=== PATIENT | male | born 1980 | race Caucasian/White ===

== ENCOUNTER 2022-11-16 12:51 | Observation (INO) | payer BC, SELFPAY ==
[2022-11-16] VITALS (11 sets, daily range): BP systolic 105–125; BP diastolic 62–80; PULSE 87–142; RESP 16–24; TEMP 36.6–36.9; O2SAT 96–99; BMI 22.0; BMI 22.5
[2022-11-16] MEDS: dilTIAZem 5 MG/ML inj 20 MG IVP (13:20)
[2022-11-16 13:23] LABS: Basophils Absolute Auto 0.05 K/uL (0.00-0.30); Basophils Percent Auto 0.5 % (0.0-3.0); Eosinophils Absolute Auto 0.32 K/uL (0.00-0.50); Eosinophils Percent Auto 3.2 % (0.0-7.0); Hematocrit 41.2 % (37.0-53.0); Hemoglobin* 12.6 gm/dL (13.5-17.5); Immature Granulocytes Abs Auto 0.07 K/uL (0.00-0.30); Immature Granulocytes Pct Auto 0.7 %; Lymphocytes Percent Auto 14.9 % (20-44); Mean Corpuscular HGB Conc 31 gm/dL (32-36); Mean Corpuscular Hemoglobin 31 pg (26-34); Mean Corpuscular Volume 103 fL (80-100); Monocytes Percent Auto 8.9 % (0.0-11.0); Neutrophils Absolute Auto 7.09 K/uL (1.7-7.0); Neutrophils Percent Auto 71.8 % (42.0-72.0); Platelet Count* 338 K/uL (140-440); RDW Coefficient of Variation % 14.7 % (11.5-15.5); Red Blood Count 4.01 m/uL (4.30-5.90); White Blood Count* 9.88 K/uL (4.50-11.00)
[2022-11-16 13:29] LABS: Slide Review Reflex No
--- NOTE | 2022-11-16 13:40 | PC.NURSE ---
pt states feeling much better with rate down to 103, recheck ekg, sinus tach, physician informed. denies chest pain or pressure.
[2022-11-16 13:42] LABS: Chloride* 107 mmol/L (96-114); Potassium* 3.7 mmol/L (3.6-5.1); Sodium* 142 mmol/L (135-149)
[2022-11-16 13:45] LABS: Anion Gap 10 mEq/L (7-15); Blood Urea Nitrogen* 7 mg/dL (5-24); Calcium* 9.1 mg/dL (8.4-10.6); Carbon Dioxide* 25 mmol/L (20-32); Creatinine* 0.6 mg/dL (0.5-1.5); Estimated Glomerular Filt Rate 125 ml/min; Glucose* 123 mg/dL (60-115); Magnesium* 1.7 mg/dL (1.5-2.6)
[2022-11-16 14:07] LABS: Troponin I* < 0.01 ng/mL (0.01-0.04)
[2022-11-16] MEDS: dilTIAZem 30 MG TABLET PO ×2 (15:49→21:41)
[2022-11-16 15:55] LABS: Albumin* 3.7 g/dL (3.3-5.0)
[2022-11-16 15:58] LABS: Alanine Aminotransferase* 28 U/L (4-50); Alkaline Phosphatase* 112 U/L (40-150); Aspartate Amino Transferase* 33 U/L (12-35); Bilirubin Direct* 0.2 mg/dL (0.0-0.5); Bilirubin Total* 0.4 mg/dL (0.1-1.5); Total Protein* 7.1 g/dL (6.0-8.3)
[2022-11-16 16:01] LABS: Ethanol* < 0.01 % (0.01-0.03)
--- NOTE | 2022-11-16 16:44 | ED_ITS ---
HPI - General Adult General Date Seen: 11/16/22 Chief complaint: Shortness of Breath/Dyspnea Stated complaint: Chest pain, short of breath Time Seen by Provider: 11/16/22 13:09 Source: patient Mode of arrival: ambulatory Limitations: no limitations History of Present Illness HPI narrative: Patient is a 42-year-old male presents emergency department for chest discomfort. He states roughly am in [place] discomfort in his chest. States it is not painful or pressure just ?feels funny.? Denies this ever happened to him before. He has no history of heart disease. Denies lightheadedness, dizziness, headache, weakness, numbness, vision changes. States there is some associated shortness of breath. States he has been working outside in the heat a lot recently and has been having issues with heat exhaustion. He is in town working a job but is from the [facility]. Is not currently on any medications. Related Data Home Medications Medication Instructions Recorded Confirmed No Known Home Medications 11/16/22 11/16/22 Allergies Allergy/AdvReac Type Severity Reaction Status Date / Time shellfish derived Allergy Verified 11/16/22 13:15 Review of Systems Status of ROS: Reports: 10 or more systems reviewed and unremarkable except as noted in History and below PFSH PFS Social History What is your current living situation?: I presently have a place to live Problems where you live: no known problems Problems where you live details: none In the past 12 months, utilities in danger of being shut off: no In the past 12 mos, have been you worried that your food would run out before you had money to buy more?: never true In the past 12 mos, the food you bought just didn't last and you didn't have money to buy more?: never true Highest level of school completed/degree received: Associate degree: occupation al, technical, vocational program Smoking Status: Current every day smoker What tobacco products do you use: cigarettes Smoking packs per day: 1 Smoking cigarettes per day: 20.0 Years smoked: 2 Smoking pack-years: 2.00 Do you use any of these nicotine containing products: None Second hand tobacco smoke exposure: No How often do you have a drink containing alcohol: never How often do you have six or more drinks on one occasion: Never AUDIT-C Alcohol total score: 0 Non-prescribed substance use: other Non-prescribed substance use details: Kratom tea daily Caffeine: Yes (5 cups coffee daily) How often does anyone, including family, friends and others, physically hurt you : never How often does anyone, including family, friends and others, insult or talk down to you: never How often does anyone, including family, friends and others, threaten you with harm: never How often does anyone, including family, friends and others, scream or curse at you: never service: No Exam Narrative: Exam Narrative: Const: Well-nourished, Well-developed, in mild distress Eyes: PERRL, no conjunctival injection, and symmetrical lids ENMT: Atraumatic external nose and ears. Moist mucous membranes. Neck: Symmetric, trachea midline, No thyromegaly. CVS: Tachycardia, No murmurs or gallops. Peripheral pulses 2+ and equal in all extremities RESP: Unlabored respiratory effort. Clear to auscultation bilaterally. GI: Nontender/Nondistended, No rebound or guarding. MSK:Extremities w/o deformity, Normal Active ROM Skin: Warm, Dry. No rashes or lesions. Neuro: Normal Muscle tone, No focal neurological deficits. Psych: Awake, Alert, & Oriented x3. Appropriate mood and affect. Const: Vital Signs, click to edit/add: Vital Signs - 24 hr 11/16/22 12:59 11/16/22 13:05 11/16/22 13:27 Temperature 98.1 F Pulse Rate [Right Pulse Oximeter] 135 H 142 H 105 H Respiratory Rate 24 16 Blood Pressure [Ri ght Upper Arm] 120/70 125/75 125/75 Pulse Oximetry 99 98 Oxygen Delivery Me thod Room Air Room Air 11/16/22 15:04 11/16/22 15:30 11/16/22 15:57 Temperature 97.8 F Pulse Rate [Right Pulse Oximeter] 98 94 107 H Respiratory Rate 16 18 Blood Pressure [Ri ght Upper Arm] 109/72 109/72 119/76 Pulse Oximetry 98 Oxygen Delivery Me thod Room Air 11/16/22 16:00 Temperature Pulse Rate [Right Pulse Oximeter] 110 H Respiratory Rate 18 Blood Pressure [Ri ght Upper Arm] 122/62 Pulse Oximetry Oxygen Delivery Me thod Course Vital Signs Vital signs: Initial Vital Signs Temperature 98.1 F 11/16/22 12:59 Temperature Source Temporal Artery Scan 11/16/22 12:59 Pulse Rate 135 H 11/16/22 12:59 Respiratory Rate 24 11/16/22 12:59 Blood Pressure 120/70 11/16/22 12:59 Blood Pressure Mean 86 11/16/22 12:59 Blood Pressure Position Sitting 11/16/22 12:59 Pulse Oximetry 99 11/16/22 12:59 Oxygen Delivery Method Room Air 11/16/22 12:59 Vital Signs Temperature 98.1 F 11/16/22 12:59 Pulse Rate 135 H 11/16/22 12:59 Respiratory Rate 24 11/16/22 12:59 Blood Pressure 120/70 11/16/22 12:59 Pulse Oximetry 99 11/16/22 12:59 Oxygen Delivery Method Room Air 11/16/22 12:59 Temperature 97.8 F 11/16/22 15:04 Pulse Rate 87 11/16/22 16:41 Respiratory Rate 16 11/16/22 16:41 Blood Pressure 120/80 11/16/22 16:41 Pulse Oximetry 98 11/16/22 16:41 Oxygen Delivery Method Room Air 11/16/22 16:41 Medical Decision Making MDM Narrative Medical decision making narrative: Patient is a 42-year-old male presenting to the emergency department for chest discomfort and shortness of breath. Started suddenly this morning at 06:00. Has never had issues like this before. Does state he has been having trouble with heat exhaustion. They 1st arrived his heart rates in the 140s-150s and appears to show AFib. EKG was immediately done showing AFib with RVR with a rate in the 140s. No ST or T-wave abnormalities. Normal axis. Cardizem was ordered to slow his heart rate down. 20 mg of Cardizem was given and brought his heart rate down to the 100s and repeat EKG was done showing sinus tachycardia with a rate of 103, normal intervals, normal axis, no ST or T-wave abnormalities. Cardiac workup was ordered including CBC, BMP, magnesium, troponin. His lab work shows no concerning abnormalities. After patient received Cardizem his heart rate is now in the 80s and he has intermittently jumped from sinus rhythm to AFib with RVR. Initially whenever he would move he would go back into AFib with RVR in at that point he would have the chest discomfort again. He will quickly then moved back to normal sinus rhythm. We considered sending him home on Cardizem orally but then he has a sustained episode of AFib with RVR in the 140s again. He does not have a primary care doctor and has to drive up to to lose. At this point I believe it is safer for the patient to be admitted overnight and be optimized on rate control if it is deemed necessary. I spoke to the admitting hospitalist Dr. Arreola, and since he responded so well to the Cardizem we will try him on 30 mg of Cardizem every 6 hours. Alcohol level is ordered and was negative. His magnesium was within normal limits of 1.7 but since he is having a new arrhythmia we will give him a g of magnesium to try and bring above 2. Patient be admitted and he is agreeable to this plan. Lab Data Labs: Lab Results 11/16/22 11/16/22 11/16/22 Range/Units 13:12 15:23 15:41 WBC 9.88 (4.50-11.00) K/uL RBC 4.01 L (4.30-5.90) m/uL Hgb 12.6 L (13.5-17.5) gm/dL Hct 41.2 (37.0-53.0) % MCV 103 H (80-100) fL MCH 31 (26-34) pg MCHC 31 L (32-36) gm/dL RDW Coeff of Jodi 14.7 (11.5-15.5) % Plt Count 338 (140-440) K/uL Neut % (Auto) 71.8 (42.0-72.0) % Lymph % (Auto) 14.9 L (20-44) % Harris % (Auto) 8.9 (0.0-11.0) % Eos % (Auto) 3.2 (0.0-7.0) % Baso % (Auto) 0.5 (0.0-3.0) % Neut # (Auto) 7.09 H (1.7-7.0) K/uL Lymph # (Auto) 1.50 (0.90-2.90) K/uL Harris # (Auto) 0.90 (0.00-0.90) K/UL Eos # (Auto) 0.32 (0.00-0.50) K/uL Baso # (Auto) 0.05 (0.00-0.30) K/uL Abs Immat Gran (auto) 0.07 (0.00-0.30) K/uL Imm/Tot Granulo (auto) 0.7 % Sodium 142 (135-149) mmol/L Potassium 3.7 (3.6-5.1) mmol/L Chloride 107 (96-114) mmol/L Carbon Dioxide 25 (20-32) mmol/L Anion Gap 10 (7-15) mEq/L BUN 7 (5-24) mg/dL Creatinine 0.6 (0.5-1.5) mg/dL Estimated Creat Clear 165.90 Estimated GFR 125 ml/min Glucose 123 H (60-115) mg/dL Calcium 9.1 (8.4-10.6) mg/dL Magnesium 1.7 (1.5-2.6) mg/dL Total Bilirubin 0.4 (0.1-1.5) mg/dL Direct Bilirubin 0.2 (0.0-0.5) mg/dL AST 33 (12-35) U/L ALT 28 (4-50) U/L Alkaline Phosphatase 112 (40-150) U/L Total Creatine Kinase < 20 L (54-186) U/L Troponin I < 0.01 L (0.01-0.04) ng/mL Total Protein 7.1 (6.0-8.3) g/dL Albumin 3.7 (3.3-5.0) g/dL Ethyl Alcohol < 0.01 L (0.01-0.03) % Lab Acknowledgement Test Added POC Troponin I 0.00 L (0.01-0.04) ng/ml Critical Care Time Critical Care Time Critical Care Time: Yes Attestation: The patient required my highest level preparedness to intervene emergently and I personally spent this critical care time directly and personally managing the patient. This critical care time included: Obtaining a history; Examining the patient; Pulse oximetry; Ordering and reviewing of studies; Arranging urgent treatment with development of a management plan; Evaluation of patients resp onse to treatment; Frequent reassessment discussions with other providers. This critical care time was performed to assess and manage the high probability of imminent life-threatening deterioration that could result in multiorgan failure. It was exclusive of separate billable procedures and treating other patients and teaching time. Total Critical Care Time in Minutes: 32 Discharge Plan Discharge Clinical Impression: Atrial fibrillation with rapid ventricular response Patient Disposition: Admitted As Observation Discharge Location: [facility] Condition: Improved Activity Level: No Restrictions Discharge Diet: Regular
[2022-11-16 17:23] LABS: Creatine Kinase* < 20 U/L (54-186)
[2022-11-16 17:28] LABS: Hemoglobin A1C* 4.86 % (0-5.6)
--- NOTE | 2022-11-16 17:31 | P.IMHP_ITS ---
Hospitalist- H&P: HPI History of Present Illness Date Seen: 11/16/22 Chief complaint: Chest pain, short of breath Narrative: Emory Longoria is a 42 year old male who presented to the emergency room with concerns of palpitations. Palpitations were associated with mild dyspnea. He notes similar symptoms while falling asleep (once or twice in the past); these palpitations have always quickly resolved. He has not had any dizziness, presyncope, or vision changes. He is in the area working (lives near [place]). ER Course and Findings: - initial EKG exhibited atrial fibrilation with RVR - given IV Cardizem with + conversion to sinus rhythm - mild macrocytic anemia - started on oral Cardizem and admitted for observation Patient is generally healthy. Does not have a PCP. Review of Systems Narrative: - patient notes that approximately 3 weeks ago he became quite ill while working outside and had one day of fairly violent nausea and vomiting, in addition to weakness and diffuse achiness; GI symptoms resolved within 1 day, but achiness persisted for at least 1 week. He believes this was a heat acquired illness and did not seek care at the time - following illness 3 weeks ago, has had early satiety and decreased p.o. intake - has had - No skin concerns - Emory endorses a many year history of regularly using the supplement pain reliever KRATOM for chronic pain. He was typically taking this every 3 hours, and has recently started trying to taper off of this by taking it every 5 hours. Last dose of KRATOM was 11/16/22 at 0900 - doesn't see a dentist regularly, has noted some issues with dentition [facility] Family History (Updated 11/16/22 @ 17:32 by Kecia Arreola MD) Father Cardiac arrhythmia Social History (Updated 11/16/22 @ 21:55 by Kecia Arreola MD) Narrative: Lives with Saima and 2 children [place] of [place]. 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 Smokes 1 pack per day, no alcohol since 2009. Uses Kratom daily (tea: recently cut down from using every 5 hours to every 3 hours). Full Code What is your current living situation?: I presently have a place to live Problems where you live: no known problems Problems where you live details: none In the past 12 months, utilities in danger of being shut off: no In the past 12 mos, have been you worried that your food would run out before you had money to buy more?: never true In the past 12 mos, the food you bought just didn't last and you didn't have money to buy more?: never true Highest level of school completed/degree received: Associate degree: occupational, technical, vocational program Smoking Status: Current every day smoker What tobacco products do you use: cigarettes Smoking packs per day: 1 Smoking cigarettes per day: 20.0 Years smoked: 2 Smoking pack-years: 2.00 Do you use any of these nicotine containing products: None Second hand tobacco smoke exposure: No How often do you have a drink containing alcohol: never How often do you have six or more drinks on one occasion: Never AUDIT-C Alcohol total score: 0 Non-prescribed substance use: other Non-prescribed substance use details: Kratom tea daily Caffeine: Yes (5 cups coffee daily) How often does anyone, including family, friends and others, physically hurt you : never How often does anyone, including family, friends and others, insult or talk down to you: never How often does anyone, including family, friends and others, threaten you with harm: never How often does anyone, including family, friends and others, scream or curse at you: never Do you think of yourself as: straight/heterosexual Gender Identity: male service: No Meds Home Medications and Allergies Home Medications Medication Instructions Recorded Confirmed Type No Known Home Medications 11/16/22 11/16/22 History Allergies Allergy/AdvReac Type Severity Reaction Status Date / Time shellfish derived Allergy Verified 11/16/22 13:15 Exam Narrative: Exam Narrative: GEN: Alert and oriented, answering questions appropriately HEENT: Poor dentition without evidence of acute infection, EOMIs bilaterally, no scleral icterus CV: RRR, No concerning murmurs, rubs, or gallops R: LCTA bilaterally without concerning wheezing, air movement adequate Ab: soft, no masses, no guarding Back: normal contours, no ttp over spinous processes Ext: wwp, no concerning edema Skin: No concerning skin lesions or rashes on exposed skin Neuro: No focal deficits Psych: Appropriate Const: Vital Signs, click to edit/add: Vital Signs - 24 hr 11/16/22 12:59 11/16/22 13:05 11/16/22 13:27 Temperature 98.1 F Pulse Rate [Pulse Oximeter] Pulse Rate [Right Pulse Oximeter] 135 H 142 H 105 H Respiratory Rate 24 16 Blood Pressure [Le ft Arm] Blood Pressure [Ri ght Upper Arm] 120/70 125/75 125/75 Pulse Oximetry 99 98 Oxygen Delivery Fl thod Room Air Room Air 11/16/22 15:04 11/16/22 15:30 11/16/22 15:57 Temperature 97.8 F Pulse Rate [Pulse Oximeter] Pulse Rate [Right Pulse Oximeter] 98 94 107 H Respiratory Rate 16 18 Blood Pressure [Le ft Arm] Blood Pressure [Ri ght Upper Arm] 109/72 109/72 119/76 Pulse Oximetry 98 Oxygen Delivery Fl thod Room Air 11/16/22 16:00 11/16/22 16:30 11/16/22 16:41 Temperature Pulse Rate [Pulse Oximeter] 87 Pulse Rate [Right Pulse Oximeter] 110 H 90 Respiratory Rate 18 16 16 Blood Pressure [Le ft Arm] 120/80 Blood Pressure [Ri ght Upper Arm] 122/62 105/65 Pulse Oximetry 98 Oxygen Delivery Fl thod Room Air Hospitalist - H&P: Result Labs Labs: Short CBC 11/16/22 Range/Units 13:12 WBC 9.88 (4.50-11.00) K/uL Hgb 12.6 L (13.5-17.5) gm/dL Hct 41.2 (37.0-53.0) % Plt Count 338 (140-440) K/uL BMP 11/16/22 13:12 Sodium 142 Potassium 3.7 Chloride 107 Carbon Dioxide 25 BUN 7 Creatinine 0.6 Glucose 123 H Calcium 9.1 Cardiac Enzymes 11/16/22 Range/Units 13:12 Total Creatine Kinase < 20 L (54-186) U/L Troponin I < 0.01 L (0.01-0.04) ng/mL Liver Function 11/16/22 Range/Units 13:12 Total Bilirubin 0.4 (0.1-1.5) mg/dL Direct Bilirubin 0.2 (0.0-0.5) mg/dL AST 33 (12-35) U/L ALT 28 (4-50) U/L Alkaline Phosphatase 112 (40-150) U/L Albumin 3.7 (3.3-5.0) g/dL Assessment and Plan Assessment and plan (1) Atrial fibrillation with rapid ventricular response: Problem comment: - responded well to IV diltiazem x1 in the ED - oral diltiazem scheduled - TTE, follow troponins - patient is a non-ETOH user, but cutting down on Kratom; symptoms could be re lated to withdrawal - will trial Clonidine at HS, Tizanidine prn - needs PCP f/u for further workup and monitoring (has appt scheduled next week) to discuss management ([id number]) Status: Acute (2) Tobacco use: Problem comment: - patch, gum, prn lorazepam Status: Acute (3) Macrocytic anemia: Problem comment: - no current alcohol use, no restrictive diet - no melena or GERD, has had early satiety recently with weight loss - will obtain CT ab/pelvis to better characterize, potentially also related to Kratom usage Status: Acute (4) Substance abuse: Problem comment: - Kratom (herbal extract): used for pain relief. Has mu-opioid receptor agonism, some patients require treatment during withdrawal given opiate properties - trial of Clonidine at HS, close PCP f/u Status: Acute Plan - per above - likely able to d/c home tomorrow with close PCP f/u
[2022-11-16] MEDS: NICOTINE 14 mg PATCH 1 PATCH TOPICAL (17:36)
[2022-11-16] MEDS: NICOTINE 4 MG GUM BUCCAL ×2 (17:43→19:42)
--- NOTE | 2022-11-16 20:40 | CRLHL7_ITS ---
For Patients: As a result of the Century Cures Act, medical imaging exams and procedure reports are released immediately into your electronic medical record. You may view this report before your referring provider. If you have questions, please contact your health care provider. INDICATION: Weight loss, anemia. TECHNIQUE: CT abdomen and pelvis acquired with 79CC [id number] IV contrast. COMPARISON: None. FINDINGS: Lower chest: Unremarkable. Liver: Unremarkable. Normal in size and attenuation. No suspicious masses. Gallbladder and bile ducts: Unremarkable. No stones or inflammation. No biliary dilatation. Pancreas: Unremarkable. No mass or inflammation. Spleen: Unremarkable. Normal in size. No masses. Adrenal glands: Unremarkable. No nodules. Kidneys: Unremarkable. No suspicious masses, stones, or hydronephrosis. GI tract: Above-average colonic stool volume. No bowel obstruction. Appendix is not well visualized. Vasculature: Abdominal aorta is normal in caliber. Mesenteric arteries are patent. Lymph nodes: No lymphadenopathy. Peritoneum/Abdominal Wall: Paucity of intra-abdominal fat, he limits evaluation. No evidence of free air or free fluid. Mild mesenteric stranding. Pelvis: Unremarkable. Bones: Unremarkable for age. IMPRESSION: Above-average colonic stool volume. Otherwise no acute intra-abdominal process identified. Please note that all CT scans at this facility use dose modulation, iterative reconstruction, and/or weight-based dosing when appropriate to reduce radiation dose to as low as reasonably achievable. Dictated by Herb Ennis MD @ 11/16/2022 9:36:49 PM (Electronically Signed)
[2022-11-16] MEDS: ENOXAPARIN 40 MG/0.4 ML INJ SUBCUT (21:40)
[2022-11-16] MEDS: cloNIDine HCL 0.1 MG TABLET PO (21:41)
[2022-11-16] MEDS: SODIUM CHLORIDE 0.9 % (FLUSH) 10 ML SYRINGE 5 ML IVF (21:41)
[2022-11-16] MEDS: ACETAMINOPHEN 325 MG TABLET 975 MG PO (22:32)
[2022-11-16] MEDS: LORazepam 0.5 MG TABLET PO (22:32)
--- NOTE | 2022-11-16 23:12 | PC.NURSE ---
Admission-- Very pleasant and cooperative, alert and oriented patient was admitted to med-surg from ED. VSS and pt is afebrile. SPO2 maintained >90% on RA. He c/o pain in his upper back/shoulders that he rated as high as 4 out of 10 and was given Tylenol and an Aqua K pad with great encouragement. Telemetry shows NSR. Hear rate briefly increased to as high as 130s and MD was notified, but quickly resolved without intervention. He denied any chest pain or pressure. LS CTA. BS+ x4, pt denied nausea and tolerated 100% of a regular diet without difficulty. Pt stated that he had recently had a poor appetite and lost about 35lbs but that appetite has since improved. was at bedside this evening and appears loving and supportive. Report to TAMI Jiménez.
[2022-11-17 00:05] VITALS: BP 103/63; PULSE 77; PULSE 83; RESP 18; TEMP 36.6; O2SAT 96
[2022-11-17 03:20] VITALS: BP 100/51; PULSE 80; RESP 16; TEMP 36.6; O2SAT 95
[2022-11-17] MEDS: dilTIAZem 30 MG TABLET PO (03:21)
[2022-11-17 06:42] LABS: Basophils Absolute Auto 0.05 K/uL (0.00-0.30); Basophils Percent Auto 0.7 % (0.0-3.0); Eosinophils Absolute Auto 0.27 K/uL (0.00-0.50); Eosinophils Percent Auto 3.5 % (0.0-7.0); Hematocrit 38.2 % (37.0-53.0); Hemoglobin* 12.7 gm/dL (13.5-17.5); Immature Granulocytes Abs Auto 0.02 K/uL (0.00-0.30); Immature Granulocytes Pct Auto 0.3 %; Mean Corpuscular HGB Conc 33 gm/dL (32-36); Mean Corpuscular Hemoglobin 31 pg (26-34); Mean Corpuscular Volume 93 fL (80-100); Monocytes Percent Auto 10.4 % (0.0-11.0); Neutrophils Percent Auto 72.1 % (42.0-72.0); Platelet Count* 309 K/uL (140-440); RDW Coefficient of Variation % 14.7 % (11.5-15.5); Red Blood Count 4.12 m/uL (4.30-5.90); White Blood Count* 7.69 K/uL (4.50-11.00)
[2022-11-17 07:00] VITALS: BP 109/77; PULSE 73; PULSE 76; RESP 16; TEMP 36.7; O2SAT 95
--- NOTE | 2022-11-17 07:01 | PC.NURSE ---
Pt is alert and oriented x3. Afebrile but sweat through gown overnight, linen and gown changed. Pt denies, pain, chest pain, and N/V. Pt is on telemonitoring, pt?s rhythm is NSR. Pt is up ad galen in room, voiding, and tolerating a regular diet.?Pt slept throughout most of night. Night uneventful. ?
[2022-11-17 07:03] LABS: Slide Review Reflex No
[2022-11-17 07:13] LABS: Albumin* 3.2 g/dL (3.3-5.0); Chloride* 109 mmol/L (96-114)
[2022-11-17 07:14] LABS: Sodium* 143 mmol/L (135-149)
[2022-11-17 07:16] LABS: Alkaline Phosphatase* 97 U/L (40-150); Anion Gap 6 mEq/L (7-15); Aspartate Amino Transferase* 23 U/L (12-35); Bilirubin Total* 0.4 mg/dL (0.1-1.5); Blood Urea Nitrogen* 8 mg/dL (5-24); Carbon Dioxide* 28 mmol/L (20-32); Creatinine* 0.6 mg/dL (0.5-1.5); Est. Creatinine Clearance* 169.26; Estimated Glomerular Filt Rate 125 ml/min; Total Protein* 6.3 g/dL (6.0-8.3)
[2022-11-17 07:17] LABS: Alanine Aminotransferase* 24 U/L (4-50); Glucose* 101 mg/dL (60-115); Magnesium* 2.1 mg/dL (1.5-2.6)
[2022-11-17 07:34] LABS: Troponin I* < 0.01 ng/mL (0.01-0.04)
[2022-11-17] MEDS: SODIUM CHLORIDE 0.9 % (FLUSH) 10 ML SYRINGE 5 ML IVF (08:59)
[2022-11-17] MEDS: cloNIDine HCL 0.1 MG TABLET PO (08:59)
[2022-11-17] MEDS: ACETAMINOPHEN 325 MG TABLET 975 MG PO (09:50)
--- NOTE | 2022-11-17 10:34 | P.DS_ITS ---
DS: Providers Provider Date Seen: 11/17/22 Date of admission: 11/16/22 16:28 Primary care physician: Not a Local Provider Admitting Clinician: Kecia Arreola MD Attending Physician on discharge: Pato Barrios MD Date of Discharge: 11/17/22 DS: Diagnosis Discharge Diagnosis (1) Atrial fibrillation with rapid ventricular response: Status: Acute Problem details: Patient given rate control with IV diltiazem in the emergency department. Also received IV magnesium. With this he converted to sinus rhythm and has remained in normal sinus rhythm overnight. Discharged without rate control or anticoagulation. Outpatient follow-up. Consider outpatient heart monitoring (2) Tobacco use: Status: Acute Problem details: - patch, gum, prn lorazepam (3) Macrocytic anemia: Status: Acute Problem details: - no current alcohol use, no restrictive diet - no melena or GERD, has had early satiety recently with weight loss - will obtain CT ab/pelvis to better characterize, potentially also related to Kratom usage (4) Substance abuse: Status: Acute Problem details: - Kratom (herbal extract): used for pain relief. Has mu-opioid receptor agonism, some patients require treatment during withdrawal given opiate properties - trial of Clonidine at HS, close PCP f/u DS: Summary Hospital Course Hospital Course: 42-year-old male admitted to the hospital with palpitations and dyspnea the day of admission. He was found to be in AFib with RVR. Given IV diltiazem and IV magnesium. Converted to sinus rhythm and remained in sinus rhythm. Patient reports previous history of episodes of palpitations in the past without documentation of AFib. Patient has been attempting to wean off of Kratom which he has been using chronically for years. On admission there was question of whether this was causing some withdrawal and possibly contributing to AFib. On that basis he was started on clonidine 0.1 mg b.i.d. to treat withdrawal symptoms. Status at Discharge Functional status at discharge: independent ambulation Overall status at discharge: patient is back to baseline Time Spent with Patient Time attestation: Total time spent providing and/or coordinating discharge services: Time spent: Greater than 30 minutes Exam Narrative: Exam Narrative: He is alert no distress. Oriented to his circumstances. Pleasant and cooperative. No significant tremulousness. Breathing is unlabored. Cardiovascular: Regular rate and rhythm. Const: Vital Signs, click to edit/add: Vital Signs - 24 hr 11/16/22 12:59 11/16/22 13:05 11/16/22 13:27 Temperature 98.1 F Pulse Rate Pulse Rate [Pulse Oximeter] Pulse Rate [Right Pulse Oximeter] 135 H 142 H 105 H Respiratory Rate 24 16 Blood Pressure [Le ft Arm] Blood Pressure [Ri ght Upper Arm] 120/70 125/75 125/75 Pulse Oximetry 99 98 Oxygen Delivery Me thod Room Air Room Air 11/16/22 15:04 11/16/22 15:30 11/16/22 15:57 Temperature 97.8 F Pulse Rate Pulse Rate [Pulse Oximeter] Pulse Rate [Right Pulse Oximeter] 98 94 107 H Respiratory Rate 16 18 Blood Pressure [Le ft Arm] Blood Pressure [Ri ght Upper Arm] 109/72 109/72 119/76 Pulse Oximetry 98 Oxygen Delivery Dc thod Room Air 11/16/22 16:00 11/16/22 16:30 11/16/22 16:41 Temperature Pulse Rate Pulse Rate [Pulse Oximeter] 87 Pulse Rate [Right Pulse Oximeter] 110 H 90 Respiratory Rate 18 16 16 Blood Pressure [Le ft Arm] 120/80 Blood Pressure [Ri ght Upper Arm] 122/62 105/65 Pulse Oximetry 98 Oxygen Delivery Dc thod Room Air 11/16/22 16:41 11/16/22 17:41 11/16/22 19:34 Temperature 98.5 F Pulse Rate 88 Pulse Rate [Pulse Oximeter] Pulse Rate [Right Pulse Oximeter] 89 Respiratory Rate 16 16 Blood Pressure [Le ft Arm] 117/73 Blood Pressure [Ri ght Upper Arm] Pulse Oximetry 98 96 Oxygen Delivery Dc thod Room Air Room Air 11/17/22 00:05 11/17/22 00:05 11/17/22 00:05 Temperature Pulse Rate 77 Pulse Rate [Pulse Oximeter] 83 Pulse Rate [Right Pulse Oximeter] Respiratory Rate 18 18 Blood Pressure [Le ft Arm] Blood Pressure [Ri ght Upper Arm] Pulse Oximetry 96 Oxygen Delivery Dc thod Room Air 11/17/22 00:05 11/17/22 03:20 11/17/22 07:00 Temperature 97.8 F 97.8 F Pulse Rate 76 Pulse Rate [Pulse Oximeter] 83 80 Pulse Rate [Right Pulse Oximeter] Respiratory Rate 18 16 Blood Pressure [Le ft Arm] 103/63 100/51 L Blood Pressure [Ri ght Upper Arm] Pulse Oximetry 96 95 Oxygen Delivery Me thod Room Air Room Air 11/17/22 07:00 Temperature Pulse Rate Pulse Rate [Pulse Oximeter] Pulse Rate [Right Pulse Oximeter] Respiratory Rate 16 Blood Pressure [Le ft Arm] Blood Pressure [Ri ght Upper Arm] Pulse Oximetry 95 Oxygen Delivery Me thod Room Air Documenting provider has reviewed patient's vital signs: yes DS: Data Data Completed and Pending Labs on day of discharge: Labs from last 24 hours 11/17/22 11/16/22 11/16/22 06:20 16:58 15:41 WBC 7.69 RBC 4.12 L Hgb 12.7 L Hct 38.2 MCV 93 MCH 31 MCHC 33 RDW Coeff of Jodi 14.7 Plt Count 309 Neut % (Auto) 72.1 H Lymph % (Auto) 13.0 L Campbell % (Auto) 10.4 Eos % (Auto) 3.5 Baso % (Auto) 0.7 Neut # (Auto) 5.50 Lymph # (Auto) 1.00 Campbell # (Auto) 0.80 Eos # (Auto) 0.27 Baso # (Auto) 0.05 Abs Immat Gran (auto) 0.02 Imm/Tot Granulo (auto) 0.3 Sodium 143 Potassium 4.0 Chloride 109 Carbon Dioxide 28 Anion Gap 6 L BUN 8 Creatinine 0.6 Estimated Creat Clear 169.26 Estimated GFR 125 Glucose 101 Hemoglobin A1c Calcium 9.0 Magnesium 2.1 Total Bilirubin 0.4 Direct Bilirubin AST 23 ALT 24 Alkaline Phosphatase 97 Total Creatine Kinase Troponin I < 0.01 L Total Protein 6.3 Albumin 3.2 L TSH 3.79 Ethyl Alcohol Lab Acknowledgement Test Added Test Added POC Troponin I 11/16/22 11/16/22 15:23 13:12 WBC 9.88 RBC 4.01 L Hgb 12.6 L Hct 41.2 MCV 103 H MCH 31 MCHC 31 L RDW Coeff of Jodi 14.7 Plt Count 338 Neut % (Auto) 71.8 Lymph % (Auto) 14.9 L Campbell % (Auto) 8.9 Eos % (Auto) 3.2 Baso % (Auto) 0.5 Neut # (Auto) 7.09 H Lymph # (Auto) 1.50 Campbell # (Auto) 0.90 Eos # (Auto) 0.32 Baso # (Auto) 0.05 Abs Immat Gran (auto) 0.07 Imm/Tot Granulo (auto) 0.7 Sodium 142 Potassium 3.7 Chloride 107 Carbon Dioxide 25 Anion Gap 10 BUN 7 Creatinine 0.6 Estimated Creat Clear 165.90 Estimated GFR 125 Glucose 123 H Hemoglobin A1c 4.86 Calcium 9.1 Magnesium 1.7 Total Bilirubin 0.4 Direct Bilirubin 0.2 AST 33 ALT 28 Alkaline Phosphatase 112 Total Creatine Kinase < 20 L Troponin I < 0.01 L Total Protein 7.1 Albumin 3.7 TSH 3.790 Ethyl Alcohol < 0.01 L Lab Acknowledgement POC Troponin I 0.00 L Imaging Echo: Radiologist's impression: Procedure: 2D, Color Doppler and Spectral Doppler. ? Indication for study: Atrial fibrillation with RVR ? ? Cardiac Rhythm: Regular.Study quality: ? Final Impressions: 1. Normal left ventricular size, normal wall thickness, normal global systolic function, calculated EF of 66 %. 2. Right ventricular cavity size is normal, global systolic RV function is normal. 3. The mitral valve is sclerotic, trace mitral regurgitation. 4. No pericardial effusion. CT scan - abdomen: Radiologist's impression: INDICATION: Weight loss, anemia. TECHNIQUE: CT abdomen and pelvis acquired with 79CC [id number] IV contrast. COMPARISON: None. FINDINGS: Lower chest: Unremarkable. Liver: Unremarkable. Normal in size and attenuation. No suspicious masses. Gallbladder and bile ducts: Unremarkable. No stones or inflammation. No biliary dilatation. Pancreas: Unremarkable. No mass or inflammation. Spleen: Unremarkable. Normal in size. No masses. Adrenal glands: Unremarkable. No nodules. Kidneys: Unremarkable. No suspicious masses, stones, or hydronephrosis. GI tract: Above-average colonic stool volume. No bowel obstruction. Appendix is not well visualized. Vasculature: Abdominal aorta is normal in caliber. Mesenteric arteries are patent. Lymph nodes: No lymphadenopathy. Peritoneum/Abdominal Wall: Paucity of intra-abdominal fat, he limits evaluation. No evidence of free air or free fluid. Mild mesenteric stranding. Pelvis: Unremarkable. Bones: Unremarkable for age. IMPRESSION: Above-average colonic stool volume. Otherwise no acute intra-abdominal process identified. Discharge Plan Discharge Disposition: Home, Self-Care Date of Admission: 11/16/22 16:28 Attending Provider on Discharge: Jaquan Barrios Primary Care Provider: Provider,Not a Local Condition: Improved Anticipated Discharge Date/Time: 11/17/22 10:08 Discharge Medications: New clonidine HCl 0.1 mg tablet 0.1 mg PO BID Qty: 20 0RF magnesium oxide [MagOx] 400 mg (241.3 mg magnesium) tablet 400 mg PO DAILY Qty: 30 0RF Discharge Orders: Discharge Order (Routine); Ordered 11/17/22 Ordered By: Jaquan Barrios Additional Instructions: See your health care provider next week for recheck of your episode of atrial fibrillation and to help with management of Kratom withdrawal. Activity Level: No Restrictions Discharge Diet: Regular Follow Up Appointments: Provider,Not a Local [Primary Care Provider] - Forms: [employer] Info Instructions
--- NOTE | 2022-11-17 12:44 | PC.NURSE ---
Discharge: Patient alert and oriented x4. Denies pain/SOB/N/V. Patient NSR on tele. RA. VSS. Discharged today at 1225 accompanied by spouse and sister. IV removed intact. Discharge instructions signed and patient verbalized understanding of discharge instructions. Belongings sheet signed.
--- NOTE | 2022-11-18 02:38 | PC.NURSE ---
[facility] calling for medical records as pt in now there. copies of H&P, labs and CT results faxed
== END 2022-11-17 12:25 | disposition home or self-care (01) ==
LOC: ED 14:16 → MEDSURG 16:28
PROVIDERS: Family Medicine; Admitting Provider Family Medicine; Emergency Provider Student in an Organized Health Care Education/Training Program; Visit Provider Family Medicine
DX: I48.91 Unspecified atrial fibrillation (principal); D53.9 Nutritional anemia, unspecified; I34.0 Nonrheumatic mitral (valve) insufficiency; G89.29 Other chronic pain; F17.210 Nicotine dependence, cigarettes, uncomplicated; F19.10 Other psychoactive substance abuse, uncomplicated; R07.89 Other chest pain
CPT/HCPCS: 36415; 74177; 80048; 80053; 80076; 82077; 82550; 83036; 83735; 84443; 84484; 85025; 93005; 93306; 96365; 96366; 96372; 96375; 99283; 99291; G0378; A9270; J1650; J3475; Q9967; S4990